=== PATIENT | female | born 1960 | race Caucasian/White ===

== ENCOUNTER → 2016-11-20 | Outpatient (CLI) | payer BC, OTHER ==
[~2016-11-20] MED LIST: ABILIFY2 MG PO; ACTOS30 MG PO; ALBUTEROL SULF0.5 M1 IH; CHILDREN'S ASPI81 M1 PO; CIPRO 500MG TA500 MG PO; CYMBALTA60 MG PO; DIABETA 2.5MG2.5 MG PO; GLUCOPHAGE850 MG PO; GLUCOPHAGE850 MG/TA1 PO; IPRATROPIUM BROM3 M1 IH; LEVEMIR SQ; LISINOPRIL10 MG PO; LYRICA150 MG PO; MUCINEX 60600 MG/TA1 PO; NEB; NORCO 325 MG-51 TAB PO; NYSTATIN POWDER30 GM PO; PREDNISONE10 MG PO; PROAIR RESPICL90 MCG IH; REMERON SOLTAB15 MG PO; ROBITUSSIN A-C S1 M1 PO; SIMVASTATIN40 M1 PO; SINGULAIR10 MG PO; SYNTHROID0.025 MG PO; SYNTHROID0.05 MG PO; SYNTHROID25 MCG PO; VYVANSE20 MG PO; VYVANSE50 MG PO; ZANTAC150 M1 PO; ZOFRAN4 M1 PO
== END ==
LOC: RAD 12:59
DX: J45.40 Moderate persistent asthma, uncomplicated (principal); J32.4 Chronic pansinusitis

== ENCOUNTER → 2016-12-09 | Outpatient (CLI) | payer BC, OTHER | LOC: LAB 12:45 | DX: R06.02 Shortness of breath (principal) ==

== ENCOUNTER → 2017-01-03 | Outpatient (CLI) | payer BC, OTHER | LOC: LAB 09:31 | DX: E11.621 Type 2 diabetes mellitus with foot ulcer (principal); L03.031 Cellulitis of right toe ==

== ENCOUNTER → 2017-01-10 | Outpatient (CLI) | payer BC, OTHER | LOC: LAB 09:26 | DX: R06.02 Shortness of breath (principal) ==

== ENCOUNTER → 2017-03-24 | Outpatient (CLI) | payer BC, OTHER ==
[2016-11-04 15:04] VITALS: BP 146/76
== END ==
LOC: LAB 08:45
DX: E11.9 Type 2 diabetes mellitus without complications (principal)

== ENCOUNTER → 2017-05-26 | Outpatient (CLI) | payer OTHER ==
[2016-11-04 15:04] VITALS: BP 146/76
== END ==
LOC: LAB 09:45
DX: S91.002A Unspecified open wound, left ankle, initial encounter (principal); A41.01 Sepsis due to Methicillin susceptible Staphylococcus aureus

== ENCOUNTER → 2017-07-01 | Outpatient (CLI) | payer OTHER ==
[2016-11-04 15:04] VITALS: BP 146/76
== END ==
LOC: LAB 09:43
DX: E11.40 Type 2 diabetes mellitus with diabetic neuropathy, unspecified (principal); Z79.4 Long term (current) use of insulin

== ENCOUNTER 2017-07-02 10:00 | Outpatient (RCR) | payer OTHER ==
[2016-11-04 15:04] VITALS: BP 146/76
== END 2017-07-11 08:50 | disposition home or self-care (01) ==
LOC: OT 10:00
DX: M62.81 Muscle weakness (generalized) (principal)

== ENCOUNTER → 2017-09-16 | Outpatient (CLI) | payer OTHER ==
[2016-11-04 15:04] VITALS: BP 146/76
[2017-09-16 09:31] LABS: EOS % 0.1 % (1.0-5.0); HEMATOCRIT 37.4 % (37.0-47.0); LYMPH# 1.9 (1.50-4.00); MEAN CELL VOLUME 90 fl (78-100); MEAN CORPUSCULAR HEMOGLOBIN 29 pg (27-31); MEAN CORPUSCULAR HGB CONC 32 g/dL (33-37); MEAN PLATELET VOLUME 9.3 fl (7.4-10.4); MONO # 0.6 (0.20-0.80); NEU # 6.3 (1.40-6.50); PLATELET COUNT 273 K/mm3 (130-400); RED BLOOD COUNT 4.17 M/mm3 (4.10-5.30); RED CELL DISTRIBUTION WIDTH 13.8 % (11.5-14.5); WHITE BLOOD COUNT 8.9 K/mm3 (4.8-10.8)
[2017-09-16 09:48] LABS: ALBUMIN 4.1 g/dL (3.5-5.0); BUN/CREATININE RATIO 29.2 (6.0-26.0); CALCIUM 9.4 mg/dL (8.4-10.2); POTASSIUM 4.4 mmol/L (3.6-5.0); TOTAL BILIRUBIN 0.5 mg/dL (0.2-1.3); TOTAL PROTEIN 7.5 g/dL (6.3-8.2)
== END ==
LOC: LAB 09:19
PROVIDERS: Nurse Practitioner Family
DX: Z01.419 Encounter for gynecological examination (general) (routine) without abnormal findings (principal); E11.9 Type 2 diabetes mellitus without complications; E03.4 Atrophy of thyroid (acquired); I10 Essential (primary) hypertension

== ENCOUNTER → 2017-10-29 | Outpatient (CLI) | payer OTHER ==
[2016-11-04 15:04] VITALS: BP 146/76
== END ==
LOC: MAMMO 13:32 → RAD 13:32
DX: Z12.31 Encounter for screening mammogram for malignant neoplasm of breast (principal)
CPT/HCPCS: G0202

== ENCOUNTER → 2018-01-05 | Outpatient (CLI) | payer OTHER ==
[2016-11-04 15:04] VITALS: BP 146/76
== END ==
LOC: RAD 08:47
DX: J45.901 Unspecified asthma with (acute) exacerbation (principal); Z20.828 Contact with and (suspected) exposure to other viral communicable diseases; D51.9 Vitamin B12 deficiency anemia, unspecified; E11.9 Type 2 diabetes mellitus without complications; R25.1 Tremor, unspecified

== ENCOUNTER → 2018-01-07 | Outpatient (CLI) | payer OTHER ==
[2016-11-04 15:04] VITALS: BP 146/76
[2018-01-07 11:23] LABS: ALBUMIN 3.9 g/dL (3.5-5.0); BUN/CREATININE RATIO 24.4 (6.0-26.0); CALCIUM 8.8 mg/dL (8.4-10.2); TOTAL BILIRUBIN 0.2 mg/dL (0.2-1.3); TOTAL PROTEIN 7.3 g/dL (6.3-8.2)
[2018-01-07 11:30] LABS: EOS % 0.1 % (1.0-5.0); HEMOGLOBIN 12.7 g/dL (12.5-16.0); LYMPH# 3.5 (1.50-4.00); MEAN CELL VOLUME 87 fl (78-100); MEAN CORPUSCULAR HEMOGLOBIN 28 pg (27-31); MEAN CORPUSCULAR HGB CONC 32 g/dL (33-37); MONO # 0.4 (0.20-0.80); NEU # 3.6 (1.40-6.50); PLATELET COUNT 270 K/mm3 (130-400); RED BLOOD COUNT 4.58 M/mm3 (4.10-5.30); RED CELL DISTRIBUTION WIDTH 14.5 % (11.5-14.5); WHITE BLOOD COUNT 7.6 K/mm3 (4.8-10.8)
== END ==
LOC: LAB 10:46
PROVIDERS: Nurse Practitioner Family
DX: J45.901 Unspecified asthma with (acute) exacerbation (principal); D51.9 Vitamin B12 deficiency anemia, unspecified; E11.9 Type 2 diabetes mellitus without complications; E53.8 Deficiency of other specified B group vitamins; Z20.828 Contact with and (suspected) exposure to other viral communicable diseases

== ENCOUNTER → 2018-06-07 | Emergency (ER) | payer OTHER ==
[2016-11-04 15:04] VITALS: BP 146/76
== END | disposition left against medical advice (07) ==
LOC: ED 17:35
DX: S91.104A Unspecified open wound of right lesser toe(s) without damage to nail, initial encounter (principal); Z53.21 Procedure and treatment not carried out due to patient leaving prior to being seen by health care provider

== ENCOUNTER 2018-06-16 13:23 | Outpatient (RCR) | payer OTHER ==
[~2018-06-16] VITALS: Ht 154.9 cm; Wt 100.0 kg
[2018-06-16] MEDS ORDERED: LEVEMIR100 U/M1 SQ (14:30)
[2018-06-16 14:35] VITALS: BP 132/66
[2018-06-16 14:45] VITALS: BP 122/66
[2018-06-17 11:11] VITALS: BP 122/57
[2018-06-17 11:38] VITALS: BP 143/58
[2018-06-18 11:08] VITALS: BP 134/77
[2018-06-18 11:44] VITALS: BP 114/61
[2018-06-19 09:47] VITALS: BP 114/69
[2018-06-19 10:47] VITALS: BP 122/84
[2018-06-19 17:42] VITALS: BP 126/84
[2018-06-20 11:22] VITALS: BP 124/74
[2018-06-20 12:00] VITALS: BP 111/56
[2018-06-21 11:05] VITALS: BP 136/65
[2018-06-21 11:50] VITALS: BP 112/61
[2018-06-22 10:01] VITALS: BP 126/68
[2018-06-22 10:56] VITALS: BP 128/65
== END 2018-06-22 16:00 | disposition home or self-care (01) ==
LOC: AMSURD 13:23
DX: M86.8X7 Other osteomyelitis, ankle and foot (principal); B99.9 Unspecified infectious disease
CPT/HCPCS: J0696; J1644

== ENCOUNTER → 2018-06-19 | Outpatient (CLI) | payer OTHER ==
[~2018-06-19] MED LIST changes: +LEVEMIR100 U/M1 SQ
[2018-06-19 09:47] VITALS: BP 114/69
[2018-06-19 11:18] LABS: HEMATOCRIT 34.7 % (37.0-47.0); HEMOGLOBIN 11.2 g/dL (12.5-16.0); MEAN PLATELET VOLUME 10.2 fl (7.4-10.4); RED BLOOD COUNT 3.9 M/mm3 (4.10-5.30); WHITE BLOOD COUNT 8.1 K/mm3 (4.8-10.8)
[2018-06-19 11:49] LABS: ALBUMIN 3.7 g/dL (3.5-5.0); BUN/CREATININE RATIO 27.8 (6.0-26.0); CALCIUM 8.4 mg/dL (8.4-10.2); POTASSIUM 3.6 mmol/L (3.6-5.0); TOTAL BILIRUBIN 0.2 mg/dL (0.2-1.3); TOTAL PROTEIN 6.7 g/dL (6.3-8.2)
== END ==
LOC: LAB 10:31
PROVIDERS: Family Medicine
DX: M86.8X7 Other osteomyelitis, ankle and foot (principal)

== ENCOUNTER → 2018-07-04 | Outpatient (CLI) | payer OTHER ==
[2018-06-22 10:56] VITALS: BP 128/65
[2018-07-04 08:35] LABS: EOS # 0.2 (0.04-0.40); EOS % 1.3 % (1.0-5.0); HEMATOCRIT 37.9 % (37.0-47.0); HEMOGLOBIN 12.6 g/dL (12.5-16.0); LYMPH# 1.8 (1.50-4.00); MEAN CELL VOLUME 87 fl (78-100); MEAN CORPUSCULAR HEMOGLOBIN 29 pg (27-31); MEAN CORPUSCULAR HGB CONC 33 g/dL (33-37); MEAN PLATELET VOLUME 10.4 fl (7.4-10.4); MONO # 0.7 (0.20-0.80); PLATELET COUNT 229 K/mm3 (130-400); RED BLOOD COUNT 4.34 M/mm3 (4.10-5.30); RED CELL DISTRIBUTION WIDTH 14.1 % (11.5-14.5); WHITE BLOOD COUNT 12.2 K/mm3 (4.8-10.8)
[2018-07-04 08:46] LABS: NEU # 9.4 (1.40-6.50)
== END ==
LOC: LAB 08:14
PROVIDERS: Nurse Practitioner Family
DX: R10.31 Right lower quadrant pain (principal); R10.32 Left lower quadrant pain

== ENCOUNTER → 2018-10-07 | Outpatient (CLI) | payer OTHER | LOC: RAD 08:34 | DX: M17.0 Bilateral primary osteoarthritis of knee (principal); Z96.651 Presence of right artificial knee joint; Z98.890 Other specified postprocedural states ==

== ENCOUNTER → 2019-02-03 | Outpatient (CLI) | payer OTHER | LOC: MAMMO 09:15 | DX: Z12.31 Encounter for screening mammogram for malignant neoplasm of breast (principal) ==

== ENCOUNTER 2019-03-04 08:58 | Inpatient (IN) | payer OTHER ==
[~2019-03-04] VITALS: Ht 154.9 cm; Wt 92.9 kg
[2019-03-04] MEDS ORDERED: WELLBUTRIN SR150 M3 PO (09:33)
[2019-03-04] MEDS ORDERED: WELLBUTRIN XL300 M1 PO (09:33)
[2019-03-04] MEDS ORDERED: FISH OIL1 IU PO (09:34)
[2019-03-04] MEDS ORDERED: FENOFIBRATE48 MG PO (09:34)
[2019-03-04] MEDS ORDERED: NATURAL IRON65 MG PO (09:34)
[2019-03-04] MEDS ORDERED: ADVAIR DISKUS1 DSK IH (09:35)
[2019-03-04] MEDS ORDERED: GLIPIZIDE ER5 MG PO (09:36)
[2019-03-04] MEDS ORDERED: PHARMASSURE FO0.4 MG PO (09:36)
[2019-03-04] MEDS ORDERED: LEVEMIR100 U/M1 SQ ×2 (09:37)
[2019-03-04] MEDS ORDERED: MAGNESIUM OXID400 M2 PO (09:39)
[2019-03-04] MEDS ORDERED: TOPROL XL 50MG50 MG PO (09:39)
[2019-03-04] MEDS ORDERED: LOSARTAN POTASS25 MG PO (09:39)
[2019-03-04] MEDS ORDERED: LYRICA 150MG C150 MG PO (09:41)
[2019-03-04] MEDS ORDERED: ROPINIROLE HCL1 MG PO (09:42)
[2019-03-04] MEDS ORDERED: ALDACTONE 25MG25 MG PO (09:43)
[2019-03-04] MEDS ORDERED: DESYREL 100MG100 MG PO (09:43)
[2019-03-04] MEDS ORDERED: VITAMIN B12-FO1 EACH PO (09:44)
[2019-03-04] MEDS ORDERED: VITAMIN D32000 IU PO (09:44)
[2019-03-04] MEDS ORDERED: LEADER C 250 MG1 TAB PO (09:44)
[2019-03-04] MEDS ORDERED: VITAMIN E400 UNI1 PO (09:44)
[2019-03-04 09:50] LABS: HEMATOCRIT 39.7 % (37.0-47.0); HEMOGLOBIN 12.9 g/dL (12.5-16.0); MEAN CELL VOLUME 89 fl (78-100); MEAN CORPUSCULAR HEMOGLOBIN 29 pg (27-31); MEAN CORPUSCULAR HGB CONC 33 g/dL (33-37); MEAN PLATELET VOLUME 11.1 fl (7.4-10.4); PLATELET COUNT 161 K/mm3 (130-400); RED BLOOD COUNT 4.47 M/mm3 (4.10-5.30); RED CELL DISTRIBUTION WIDTH 14.1 % (11.5-14.5); WHITE BLOOD COUNT 11.7 K/mm3 (4.8-10.8)
[2019-03-04 10:09] LABS: ALBUMIN 3.9 g/dL (3.5-5.0); CALCIUM 8.7 mg/dL (8.4-10.2); POTASSIUM 3.8 mmol/L (3.6-5.0); TOTAL BILIRUBIN 0.5 mg/dL (0.2-1.3); TOTAL PROTEIN 7.3 g/dL (6.3-8.2)
[2019-03-04 10:20] LABS: BAND 10 % (0-10); LYMPHOCYTE 10 % (20-51); MONOCYTE 4 % (3-10); NEUTROPHILS 76 % (42-75)
[2019-03-04 11:08] LABS: URINE APPEARANCE CLOUDY; URINE COLOR YELLOW
[2019-03-04 11:09] LABS: URINE BILIRUBIN NEGATIVE (NEGATIVE); URINE BLOOD NEGATIVE (NEGATIVE); URINE GLUCOSE 50 mg/dL mg/dL (NEGATIVE); URINE KETONE NEGATIVE (NEGATIVE); URINE LEUKOCYTE ESTERASE 2+ (NEGATIVE); URINE MUCUS PRESENT (NOT PRESENT); URINE NITRATE NEGATIVE (NEGATIVE); URINE PROTEIN(semi-quant) 1+ mg/dL (NEGATIVE); URINE UROBILINOGEN NORMAL (NORMAL); URINE WBC 31-50 /hpf (0-3)
[2019-03-04 12:03] VITALS: BP 127/60
[2019-03-04 13:39] VITALS: BP 150/66
[2019-03-04 15:26] VITALS: BP 120/61
[2019-03-04 18:19] VITALS: BP 92/49
[2019-03-04 19:08] VITALS: BP 97/55
[2019-03-04 23:07] VITALS: BP 101/58
[2019-03-05] VITALS (7 sets, daily range): BP systolic 93–121; BP diastolic 44–71
[2019-03-05 08:48] LABS: CALCIUM 8.4 mg/dL (8.4-10.2); EOS % 0.3 % (1.0-5.0); HEMATOCRIT 36.3 % (37.0-47.0); HEMOGLOBIN 11.8 g/dL (12.5-16.0); LYMPH# 1.1 (1.50-4.00); MEAN CELL VOLUME 89 fl (78-100); MEAN CORPUSCULAR HEMOGLOBIN 29 pg (27-31); MEAN CORPUSCULAR HGB CONC 33 g/dL (33-37); MEAN PLATELET VOLUME 11.5 fl (7.4-10.4); MONO # 0.6 (0.20-0.80); NEU # 7.8 (1.40-6.50); PLATELET COUNT 146 K/mm3 (130-400); POTASSIUM 4.7 mmol/L (3.6-5.0); RED BLOOD COUNT 4.06 M/mm3 (4.10-5.30); WHITE BLOOD COUNT 9.6 K/mm3 (4.8-10.8)
[2019-03-05 14:00] LABS: URINE APPEARANCE CLEAR; URINE BILIRUBIN NEGATIVE (NEGATIVE); URINE BLOOD NEGATIVE (NEGATIVE); URINE COLOR YELLO0W; URINE GLUCOSE 50 mg/dL mg/dL (NEGATIVE); URINE KETONE NEGATIVE (NEGATIVE); URINE LEUKOCYTE ESTERASE NEGATIVE (NEGATIVE); URINE NITRATE NEGATIVE (NEGATIVE); URINE PROTEIN(semi-quant) TRACE mg/dL (NEGATIVE); URINE UROBILINOGEN NORMAL (NORMAL); URINE WBC 0-1 /hpf (0-3)
[2019-03-06] VITALS (7 sets, daily range): BP systolic 108–145; BP diastolic 66–74
[2019-03-06 10:59] LABS: HEMATOCRIT 35.2 % (37.0-47.0); HEMOGLOBIN 11.6 g/dL (12.5-16.0); MEAN CELL VOLUME 88 fl (78-100); MEAN CORPUSCULAR HEMOGLOBIN 29 pg (27-31); MEAN CORPUSCULAR HGB CONC 33 g/dL (33-37); MEAN PLATELET VOLUME 10.4 fl (7.4-10.4); PLATELET COUNT 175 K/mm3 (130-400); RED BLOOD COUNT 3.99 M/mm3 (4.10-5.30); RED CELL DISTRIBUTION WIDTH 13.9 % (11.5-14.5); WHITE BLOOD COUNT 11.5 K/mm3 (4.8-10.8)
[2019-03-06 11:20] LABS: BAND 0 % (0-10); LYMPHOCYTE 14 % (20-51); MONOCYTE 4 % (3-10); NEUTROPHILS 82 % (42-75)
[2019-03-07] VITALS (8 sets, daily range): BP systolic 108–129; BP diastolic 62–76
[2019-03-07 07:08] LABS: EOS # 0.2 (0.04-0.40); EOS % 1.4 % (1.0-5.0); HEMATOCRIT 33.7 % (37.0-47.0); HEMOGLOBIN 10.9 g/dL (12.5-16.0); LYMPH# 1.8 (1.50-4.00); MEAN CELL VOLUME 89 fl (78-100); MEAN CORPUSCULAR HEMOGLOBIN 29 pg (27-31); MEAN CORPUSCULAR HGB CONC 32 g/dL (33-37); MEAN PLATELET VOLUME 10.2 fl (7.4-10.4); MONO # 0.9 (0.20-0.80); NEU # 8.4 (1.40-6.50); PLATELET COUNT 181 K/mm3 (130-400); RED BLOOD COUNT 3.79 M/mm3 (4.10-5.30); RED CELL DISTRIBUTION WIDTH 13.8 % (11.5-14.5); WHITE BLOOD COUNT 11.4 K/mm3 (4.8-10.8)
[2019-03-07 07:18] LABS: CALCIUM 8.9 mg/dL (8.4-10.2)
[2019-03-08 03:10] VITALS: BP 117/69
[2019-03-08 06:20] VITALS: BP 122/77
[2019-03-08 11:06] VITALS: BP 121/74
[2019-03-08 15:24] VITALS: BP 114/63
== END 2019-03-08 17:09 | disposition swing bed (61) | DRG 638 ==
LOC: ED 08:58 → MED/SURG 13:32
PROVIDERS: Family Medicine; Nurse Practitioner Family; ADMIT Nurse Practitioner Primary Care
DX: E11.649 Type 2 diabetes mellitus with hypoglycemia without coma (principal); L03.115 Cellulitis of right lower limb; N30.00 Acute cystitis without hematuria; I95.1 Orthostatic hypotension; Z79.4 Long term (current) use of insulin; I87.2 Venous insufficiency (chronic) (peripheral); G20 Parkinson's disease; F32.9 Major depressive disorder, single episode, unspecified; I50.9 Heart failure, unspecified; J45.998 Other asthma; E78.5 Hyperlipidemia, unspecified; E03.9 Hypothyroidism, unspecified; I11.0 Hypertensive heart disease with heart failure; J44.9 Chronic obstructive pulmonary disease, unspecified; R13.10 Dysphagia, unspecified
CPT/HCPCS: A4216; J0696; J1650; J1815; J1940; J2543; J3370; J7030; J7042; J7050

== ENCOUNTER 2019-03-08 17:09 | Inpatient (IN) | payer OTHER ==
[~2019-03-08] VITALS: Ht 154.9 cm; Wt 92.9 kg
[~2019-03-08 17:09] MED LIST changes: +ADVAIR DISKUS1 DSK IH; +ALDACTONE 25MG25 MG PO; +DESYREL 100MG100 MG PO; +FENOFIBRATE48 MG PO; +FISH OIL1 IU PO; +GLIPIZIDE ER5 MG PO; +LEADER C 250 MG1 TAB PO; +LOSARTAN POTASS25 MG PO; +LYRICA 150MG C150 MG PO; +MAGNESIUM OXID400 M2 PO; +NATURAL IRON65 MG PO; +PHARMASSURE FO0.4 MG PO; +ROPINIROLE HCL1 MG PO; +TOPROL XL 50MG50 MG PO; +VITAMIN B12-FO1 EACH PO; +VITAMIN D32000 IU PO; +VITAMIN E400 UNI1 PO; +WELLBUTRIN SR150 M3 PO; +WELLBUTRIN XL300 M1 PO
[2019-03-08 17:56] VITALS: BP 127/69
[2019-03-08 17:59] VITALS: BP 127/69
[2019-03-09 06:21] VITALS: BP 116/69
[2019-03-09 07:01] LABS: BASO # 0.1 (0.02-0.10); EOS # 0.2 (0.04-0.40); EOS % 1.9 % (1.0-5.0); HEMATOCRIT 32.9 % (37.0-47.0); HEMOGLOBIN 10.6 g/dL (12.5-16.0); LYMPH# 1.8 (1.50-4.00); MEAN CELL VOLUME 90 fl (78-100); MEAN CORPUSCULAR HEMOGLOBIN 29 pg (27-31); MEAN CORPUSCULAR HGB CONC 32 g/dL (33-37); MONO # 0.6 (0.20-0.80); NEU # 7.8 (1.40-6.50); PLATELET COUNT 234 K/mm3 (130-400); RED BLOOD COUNT 3.65 M/mm3 (4.10-5.30); RED CELL DISTRIBUTION WIDTH 13.7 % (11.5-14.5); WHITE BLOOD COUNT 10.8 K/mm3 (4.8-10.8)
[2019-03-09 07:24] LABS: CALCIUM 8.8 mg/dL (8.4-10.2); POTASSIUM 4.1 mmol/L (3.6-5.0)
[2019-03-09 18:00] VITALS: BP 126/82
[2019-03-09 19:13] LABS: FOLATE (FOLIC ACID) 15.8 ng/mL (7.0-31.4)
[2019-03-10 06:17] VITALS: BP 125/70
[2019-03-10 18:24] VITALS: BP 112/56
[2019-03-11 06:08] VITALS: BP 129/77
[2019-03-11 13:46] LABS: CERULOPLASMIN 43.8 mg/dL (())
[2019-03-11 15:38] LABS: .COPPER,S 2.11 mcg/mL (())
[2019-03-11 18:00] VITALS: BP 116/7
[2019-03-12 06:05] VITALS: BP 101/65
[2019-03-12 18:49] VITALS: BP 113/69
[2019-03-13 06:13] VITALS: BP 125/71
[2019-03-13 08:57] LABS: VITAMIN E 11.3 mg/L (())
[2019-03-13 19:00] VITALS: BP 104/66
[2019-03-14 06:04] VITALS: BP 127/77
[2019-03-14 18:24] VITALS: BP 129/77
[2019-03-15 06:35] VITALS: BP 111/69
[2019-03-15 18:37] VITALS: BP 121/86
[2019-03-16 06:14] VITALS: BP 135/68
[2019-03-16] MEDS ORDERED: ALBUTEROL2.5 MG/3 M IH (09:04)
[2019-03-16] MEDS ORDERED: NATURAL IRON65 MG PO (09:05)
[2019-03-16] MEDS ORDERED: FISH OIL 1000MG1 CAP PO (09:05)
[2019-03-16] MEDS ORDERED: CARBIDOPA/LEVODOPA PO (09:07)
[2019-03-16] MEDS ORDERED: NOVOLOG FLEX100 U/ML SQ (09:15)
[2019-03-16] MEDS ORDERED: GLIPIZIDE ER5 MG PO (09:15)
[2019-03-16] MEDS ORDERED: EASY TOUCH MC (09:18)
== END 2019-03-16 13:00 | disposition home or self-care (01) | DRG 948 ==
LOC: MED/SURG 17:09
PROVIDERS: ADMIT Nurse Practitioner Primary Care
DX: R53.81 Other malaise (principal); L03.115 Cellulitis of right lower limb; N39.0 Urinary tract infection, site not specified; I87.2 Venous insufficiency (chronic) (peripheral); G20 Parkinson's disease; E11.649 Type 2 diabetes mellitus with hypoglycemia without coma; G47.33 Obstructive sleep apnea (adult) (pediatric); I50.9 Heart failure, unspecified; J98.9 Respiratory disorder, unspecified; I11.0 Hypertensive heart disease with heart failure; E11.621 Type 2 diabetes mellitus with foot ulcer; L97.519 Non-pressure chronic ulcer of other part of right foot with unspecified severity; E03.9 Hypothyroidism, unspecified; E78.5 Hyperlipidemia, unspecified
CPT/HCPCS: J1650; J1815

== ENCOUNTER → 2019-04-13 | Outpatient (CLI) | payer OTHER ==
[2019-03-16 06:14] VITALS: BP 135/68
[~2019-04-13] MED LIST changes: +ALBUTEROL2.5 MG/3 M IH; +CARBIDOPA/LEVODOPA PO; +EASY TOUCH MC; +FISH OIL 1000MG1 CAP PO; +NOVOLOG FLEX100 U/ML SQ
[2019-04-13 09:55] LABS: EOS # 0.2 (0.04-0.40); EOS % 2.7 % (1.0-5.0); HEMOGLOBIN 12.1 g/dL (12.5-16.0); LYMPH# 1.7 (1.50-4.00); MEAN CELL VOLUME 89 fl (78-100); MEAN CORPUSCULAR HEMOGLOBIN 29 pg (27-31); MEAN CORPUSCULAR HGB CONC 33 g/dL (33-37); MEAN PLATELET VOLUME 10.5 fl (7.4-10.4); MONO # 0.5 (0.20-0.80); NEU # 6.1 (1.40-6.50); PLATELET COUNT 221 K/mm3 (130-400); RED BLOOD COUNT 4.14 M/mm3 (4.10-5.30); RED CELL DISTRIBUTION WIDTH 14.7 % (11.5-14.5); WHITE BLOOD COUNT 8.6 K/mm3 (4.8-10.8)
[2019-04-13 10:11] LABS: ALBUMIN 3.8 g/dL (3.5-5.0); CALCIUM 9.4 mg/dL (8.4-10.2); POTASSIUM 3.8 mmol/L (3.5-5.1); TOTAL BILIRUBIN 0.3 mg/dL (0.2-1.2); TOTAL PROTEIN 6.4 g/dL (6.4-8.3)
== END ==
LOC: LAB 09:38
PROVIDERS: Internal Medicine
DX: D51.9 Vitamin B12 deficiency anemia, unspecified (principal); E11.9 Type 2 diabetes mellitus without complications; Z20.828 Contact with and (suspected) exposure to other viral communicable diseases; R25.1 Tremor, unspecified

== ENCOUNTER → 2019-04-29 | Outpatient (CLI) | payer OTHER | LOC: RAD 09:48 | DX: R06.02 Shortness of breath (principal) ==

== ENCOUNTER 2019-06-10 09:48 | Emergency (ER) | payer OTHER ==
[~2019-06-10] VITALS: Ht 154.9 cm; Wt 84.1 kg
[~2019-06-10 09:48] MED LIST changes: +ADVAIR DISKUS1 DS2 IH; -ADVAIR DISKUS1 DSK IH; +ASPIRIN E.C. 8181 MG PO; +BUPROPION XL450 MG PO; -CHILDREN'S ASPI81 M1 PO; +CYMBALTA60 M1 PO; -CYMBALTA60 MG PO; +LEADER NATUR1000 MCG PO; +SINGULAIR PO; -SINGULAIR10 MG PO; -VITAMIN B12-FO1 EACH PO; -WELLBUTRIN SR150 M3 PO
[2019-06-10] MEDS ORDERED: FEROSUL325 M1 PO (10:25)
[2019-06-10] MEDS ORDERED: IPRATROPIUM BROM3 M1 IH (10:27)
[2019-06-10] MEDS ORDERED: MULTI-VITAMIN1 EACH PO (10:35)
[2019-06-10] MEDS ORDERED: MELOXICAM15 MG PO (10:35)
[2019-06-10] MEDS ORDERED: NATURE'S BLEND400 IU PO (10:36)
[2019-06-10] MEDS ORDERED: HEMATINIC W/FOL1 TAB PO (10:37)
[2019-06-10] MEDS ORDERED: GLUCOTROL 5M5 MG/TAB PO (10:38)
[2019-06-10] MEDS ORDERED: MASON NATURAL1200 MG PO (10:39)
[2019-06-10] MEDS ORDERED: CARBIDOPA/LEVODOPA PO (10:40)
[2019-06-10] MEDS ORDERED: ROPINIROLE8 M1 PO (10:42)
[2019-06-10] MEDS ORDERED: METOPROLOL SUC100 M1 PO (10:43)
[2019-06-10 10:48] LABS: HEMATOCRIT 37.9 % (37.0-47.0); HEMOGLOBIN 12.5 g/dL (12.5-16.0); MEAN CELL VOLUME 88 fl (78-100); MEAN CORPUSCULAR HEMOGLOBIN 29 pg (27-31); MEAN CORPUSCULAR HGB CONC 33 g/dL (33-37); PLATELET COUNT 224 K/mm3 (130-400); RED CELL DISTRIBUTION WIDTH 13.5 % (11.5-14.5); WHITE BLOOD COUNT 14.8 K/mm3 (4.8-10.8)
[2019-06-10] MEDS ORDERED: NYSTATIN15 GM TOP (10:48)
[2019-06-10] MEDS ORDERED: NOVOLOG 100U100 U/ML SQ (10:51)
[2019-06-10] MEDS ORDERED: LEVEMIR100 U/M1 SQ (10:51)
[2019-06-10 10:57] LABS: ALBUMIN 3.8 g/dL (3.5-5.0); POTASSIUM 4.4 mmol/L (3.5-5.1)
[2019-06-10 10:58] LABS: CALCIUM 9.7 mg/dL (8.3-10.5)
[2019-06-10 11:00] LABS: LYMPHOCYTE 11 % (20-51); MONOCYTE 3 % (3-10); NEUTROPHILS 86 % (42-75); TOTAL PROTEIN 7.9 g/dL (6.4-8.3)
[2019-06-10 11:02] LABS: TOTAL BILIRUBIN 0.5 mg/dL (0.2-1.2)
[2019-06-10 11:52] LABS: ERYTHROCYTE SEDIMENTATION RATE 49 mm/hr (0-30)
[2019-06-10 12:40] VITALS: BP 120/62
== END 2019-06-10 13:05 | disposition short-term general hospital (02) ==
LOC: ED 09:48
PROVIDERS: Nurse Practitioner Primary Care
DX: L03.031 Cellulitis of right toe (principal); F32.9 Major depressive disorder, single episode, unspecified; E11.9 Type 2 diabetes mellitus without complications; I10 Essential (primary) hypertension; F41.9 Anxiety disorder, unspecified; E07.9 Disorder of thyroid, unspecified; Z89.422 Acquired absence of other left toe(s); Z79.4 Long term (current) use of insulin; Z79.82 Long term (current) use of aspirin; Z79.51 Long term (current) use of inhaled steroids
CPT/HCPCS: J3370; J7030; J7050

== ENCOUNTER 2019-07-22 19:59 | Emergency (ER) | payer OTHER ==
[~2019-07-22 19:59] MED LIST changes: +FEROSUL325 M1 PO; +GLUCOTROL 5M5 MG/TAB PO; +HEMATINIC W/FOL1 TAB PO; +MASON NATURAL1200 MG PO; +MELOXICAM15 MG PO; +METOPROLOL SUC100 M1 PO; +MULTI-VITAMIN1 EACH PO; +NATURE'S BLEND400 IU PO; +NOVOLOG 100U100 U/ML SQ; +NYSTATIN15 GM TOP; +ROPINIROLE8 M1 PO
[2019-07-22 21:29] LABS: BASO # 0.1 (0.02-0.10); EOS # 0.4 (0.04-0.40); EOS % 4.7 % (1.0-5.0); HEMOGLOBIN 13.5 g/dL (12.5-16.0); LYMPH# 2.7 (1.50-4.00); MEAN CELL VOLUME 88 fl (78-100); MEAN CORPUSCULAR HEMOGLOBIN 29 pg (27-31); MEAN CORPUSCULAR HGB CONC 33 g/dL (33-37); MEAN PLATELET VOLUME 10.9 fl (7.4-10.4); MONO # 0.6 (0.20-0.80); NEU # 4.6 (1.40-6.50); PLATELET COUNT 216 K/mm3 (130-400); RED BLOOD COUNT 4.67 M/mm3 (4.10-5.30); RED CELL DISTRIBUTION WIDTH 13.8 % (11.5-14.5); WHITE BLOOD COUNT 8.3 K/mm3 (4.8-10.8)
[2019-07-22 21:50] LABS: PH-URINE 5.5 (5.0 - 8.0); URINE APPEARANCE CLEAR; URINE BILIRUBIN NEGATIVE (NEGATIVE); URINE BLOOD NEGATIVE (NEGATIVE); URINE COLOR YELLOW; URINE GLUCOSE NEGATIVE (NEGATIVE); URINE KETONE NEGATIVE (NEGATIVE); URINE LEUKOCYTE ESTERASE NEGATIVE (NEGATIVE); URINE NITRATE NEGATIVE (NEGATIVE); URINE PROTEIN(semi-quant) NEGATIVE (NEGATIVE); URINE UROBILINOGEN NORMAL (NORMAL); URINE WBC 0-1 /hpf (0-3)
[2019-07-22 21:54] LABS: ALBUMIN 4.2 g/dL (3.5-5.0); POTASSIUM 4.1 mmol/L (3.5-5.1)
[2019-07-22 21:55] LABS: CALCIUM 9.5 mg/dL (8.3-10.5)
[2019-07-22 21:57] LABS: TOTAL PROTEIN 7.6 g/dL (6.4-8.3)
[2019-07-22 21:58] LABS: TOTAL BILIRUBIN 0.2 mg/dL (0.2-1.2)
[2019-07-22 23:00] VITALS: BP 133/68
== END 2019-07-22 23:00 | disposition home or self-care (01) ==
LOC: ED 19:59
PROVIDERS: Nurse Practitioner Family
DX: K59.00 Constipation, unspecified (principal); R11.0 Nausea; E11.9 Type 2 diabetes mellitus without complications; I11.0 Hypertensive heart disease with heart failure; I50.9 Heart failure, unspecified; E78.5 Hyperlipidemia, unspecified; J44.9 Chronic obstructive pulmonary disease, unspecified; G47.33 Obstructive sleep apnea (adult) (pediatric); G20 Parkinson's disease; E03.9 Hypothyroidism, unspecified; Z79.4 Long term (current) use of insulin; Z90.710 Acquired absence of both cervix and uterus; Z98.890 Other specified postprocedural states; Z79.82 Long term (current) use of aspirin; Z79.51 Long term (current) use of inhaled steroids

== ENCOUNTER → 2019-07-28 | Outpatient (CLI) | payer OTHER ==
[2019-07-22 23:00] VITALS: BP 133/68
== END ==
LOC: RAD 07:28
DX: G93.89 Other specified disorders of brain (principal); R41.3 Other amnesia; R20.2 Paresthesia of skin
CPT/HCPCS: A9585

== ENCOUNTER → 2019-08-05 | Outpatient (CLI) | payer OTHER ==
[~2019-08-05] VITALS: Ht 154.9 cm; Wt 84.1 kg
[2019-08-05 11:04] VITALS: BP 166/79
== END ==
LOC: AMSURD 10:39
DX: K59.00 Constipation, unspecified (principal)

== ENCOUNTER 2019-08-17 09:30 | Outpatient (RCR) | payer OTHER | END 2019-08-29 | disposition still patient (30) | LOC: OT | DX: G20 Parkinson's disease (principal) ==

== ENCOUNTER 2019-09-20 15:56 | Inpatient (IN) | payer OTHER ==
[~2019-09-20] VITALS: Ht 149.9 cm; Wt 84.4 kg
[2019-09-20] MEDS ORDERED: METFORMIN ER500 MG PO (16:07)
[2019-09-20 17:23] LABS: EOS # 0.2 (0.04-0.40); EOS % 1.9 % (1.0-5.0); HEMATOCRIT 35.3 % (37.0-47.0); HEMOGLOBIN 11.6 g/dL (12.5-16.0); MEAN CELL VOLUME 89 fl (78-100); MEAN CORPUSCULAR HEMOGLOBIN 29 pg (27-31); MEAN CORPUSCULAR HGB CONC 33 g/dL (33-37); MEAN PLATELET VOLUME 9.6 fl (7.4-10.4); MONO # 0.6 (0.20-0.80); NEU # 6.6 (1.40-6.50); PLATELET COUNT 262 K/mm3 (130-400); RED BLOOD COUNT 3.97 M/mm3 (4.10-5.30); RED CELL DISTRIBUTION WIDTH 12.6 % (11.5-14.5); WHITE BLOOD COUNT 9.6 K/mm3 (4.8-10.8)
[2019-09-20 17:27] LABS: ALBUMIN 3.9 g/dL (3.5-5.0); POTASSIUM 3.9 mmol/L (3.5-5.1)
[2019-09-20 17:30] LABS: TOTAL PROTEIN 7.4 g/dL (6.4-8.3)
[2019-09-20 17:32] LABS: TOTAL BILIRUBIN 0.3 mg/dL (0.2-1.2)
[2019-09-20 18:28] LABS: ERYTHROCYTE SEDIMENTATION RATE 82 mm/hr (0-30)
[2019-09-20 18:32] VITALS: BP 122/69
[2019-09-20 18:36] VITALS: BP 122/69
[2019-09-20 23:26] VITALS: BP 101/61
[2019-09-21 03:30] VITALS: BP 105/54
[2019-09-21 06:23] VITALS: BP 121/77
[2019-09-21 06:31] LABS: EOS # 0.2 (0.04-0.40); EOS % 3.2 % (1.0-5.0); HEMOGLOBIN 10.2 g/dL (12.5-16.0); LYMPH# 2.1 (1.50-4.00); MEAN CELL VOLUME 89 fl (78-100); MEAN CORPUSCULAR HEMOGLOBIN 29 pg (27-31); MEAN CORPUSCULAR HGB CONC 32 g/dL (33-37); MEAN PLATELET VOLUME 9.7 fl (7.4-10.4); MONO # 0.5 (0.20-0.80); NEU # 3.6 (1.40-6.50); PLATELET COUNT 235 K/mm3 (130-400); RED BLOOD COUNT 3.58 M/mm3 (4.10-5.30); RED CELL DISTRIBUTION WIDTH 12.8 % (11.5-14.5); WHITE BLOOD COUNT 6.6 K/mm3 (4.8-10.8)
[2019-09-21 06:40] LABS: POTASSIUM 3.8 mmol/L (3.5-5.1)
[2019-09-21 06:41] LABS: CALCIUM 8.5 mg/dL (8.3-10.5)
[2019-09-21 10:05] LABS: ERYTHROCYTE SEDIMENTATION RATE 78 mm/hr (0-30)
[2019-09-21 11:16] VITALS: BP 120/59
[2019-09-21 14:38] VITALS: BP 115/71
[2019-09-21] MEDS ORDERED: FUROSEMIDE20 MG PO (17:52)
[2019-09-21] MEDS ORDERED: ADVAIR DISKUS1 DS2 IH (17:54)
[2019-09-21] MEDS ORDERED: ROPINIROLE12 MG PO (17:57)
[2019-09-21 18:40] VITALS: BP 119/74
[2019-09-21 23:46] VITALS: BP 101/62
[2019-09-22 03:00] VITALS: BP 94/49
[2019-09-22 06:28] VITALS: BP 110/64
[2019-09-22 11:00] VITALS: BP 109/70
[2019-09-22 15:00] VITALS: BP 125/78
[2019-09-22 19:13] VITALS: BP 104/68
[2019-09-22 23:22] VITALS: BP 111/73
[2019-09-23] VITALS (7 sets, daily range): BP systolic 101–114; BP diastolic 52–73
[2019-09-23 05:48] LABS: EOS # 0.2 (0.04-0.40); EOS % 2.7 % (1.0-5.0); HEMATOCRIT 35.5 % (37.0-47.0); HEMOGLOBIN 11.6 g/dL (12.5-16.0); LYMPH# 2.5 (1.50-4.00); MEAN CELL VOLUME 88 fl (78-100); MEAN CORPUSCULAR HEMOGLOBIN 29 pg (27-31); MEAN CORPUSCULAR HGB CONC 33 g/dL (33-37); MEAN PLATELET VOLUME 9.4 fl (7.4-10.4); MONO # 0.3 (0.20-0.80); NEU # 4.6 (1.40-6.50); PLATELET COUNT 274 K/mm3 (130-400); RED BLOOD COUNT 4.05 M/mm3 (4.10-5.30); RED CELL DISTRIBUTION WIDTH 12.6 % (11.5-14.5); WHITE BLOOD COUNT 7.8 K/mm3 (4.8-10.8)
[2019-09-23 06:19] LABS: ALBUMIN 3.8 g/dL (3.5-5.0); POTASSIUM 3.6 mmol/L (3.5-5.1)
[2019-09-23 06:20] LABS: CALCIUM 9.4 mg/dL (8.3-10.5)
[2019-09-23 06:21] LABS: TOTAL PROTEIN 7.3 g/dL (6.4-8.3)
[2019-09-23 06:23] LABS: TOTAL BILIRUBIN 0.2 mg/dL (0.2-1.2)
[2019-09-23 06:53] LABS: ERYTHROCYTE SEDIMENTATION RATE 72 mm/hr (0-30)
[2019-09-24 02:54] VITALS: BP 112/70
[2019-09-24 06:35] VITALS: BP 109/63
[2019-09-24 10:43] VITALS: BP 123/63
[2019-09-24 15:00] VITALS: BP 106/67
[2019-09-24 17:38] VITALS: BP 100/64
[2019-09-24 22:40] VITALS: BP 117/67
[2019-09-25 02:58] VITALS: BP 123/75
[2019-09-25 06:25] VITALS: BP 134/62
[2019-09-25 11:21] VITALS: BP 110/74
[2019-09-25 15:20] VITALS: BP 114/64
[2019-09-25 18:02] VITALS: BP 102/67
[2019-09-25 22:45] VITALS: BP 105/65
[2019-09-26 02:27] VITALS: BP 102/70
[2019-09-26 06:19] VITALS: BP 96/56
[2019-09-26 11:02] VITALS: BP 109/71
[2019-09-26 15:16] VITALS: BP 111/70
[2019-09-26 17:53] VITALS: BP 115/67
[2019-09-26 22:22] VITALS: BP 104/70
[2019-09-27 03:48] VITALS: BP 104/63
[2019-09-27 06:20] VITALS: BP 100/64
[2019-09-27] MEDS ORDERED: LEVAQUIN 750MG750 M1 PO (09:12)
[2019-09-27] MEDS ORDERED: CLEOCIN HCL300 MG PO (09:13)
[2019-09-27 09:32] LABS: EOS # 0.1 (0.04-0.40); EOS % 1.3 % (1.0-5.0); HEMATOCRIT 38.4 % (37.0-47.0); HEMOGLOBIN 12.5 g/dL (12.5-16.0); MEAN CELL VOLUME 88 fl (78-100); MEAN CORPUSCULAR HEMOGLOBIN 29 pg (27-31); MEAN CORPUSCULAR HGB CONC 33 g/dL (33-37); MEAN PLATELET VOLUME 9.4 fl (7.4-10.4); MONO # 0.4 (0.20-0.80); NEU # 6.3 (1.40-6.50); PLATELET COUNT 275 K/mm3 (130-400); RED BLOOD COUNT 4.35 M/mm3 (4.10-5.30); WHITE BLOOD COUNT 8.9 K/mm3 (4.8-10.8)
[2019-09-27 09:50] LABS: POTASSIUM 3.9 mmol/L (3.5-5.1)
[2019-09-27 09:51] LABS: CALCIUM 9.5 mg/dL (8.3-10.5)
[2019-09-27 10:49] LABS: ERYTHROCYTE SEDIMENTATION RATE 45 mm/hr (0-30)
[2019-09-27 10:50] VITALS: BP 120/74
[2019-09-27 11:20] VITALS: BP 104/69
== END 2019-09-27 12:20 | disposition home or self-care (01) | DRG 603 ==
LOC: ED 15:56 → MED/SURG 18:00
PROVIDERS: Nurse Practitioner; ADMIT Nurse Practitioner Primary Care
DX: L03.032 Cellulitis of left toe (principal); L03.031 Cellulitis of right toe; E11.40 Type 2 diabetes mellitus with diabetic neuropathy, unspecified; E11.621 Type 2 diabetes mellitus with foot ulcer; L97.529 Non-pressure chronic ulcer of other part of left foot with unspecified severity; B96.5 Pseudomonas (aeruginosa) (mallei) (pseudomallei) as the cause of diseases classified elsewhere; A49.01 Methicillin susceptible Staphylococcus aureus infection, unspecified site; G47.33 Obstructive sleep apnea (adult) (pediatric); I10 Essential (primary) hypertension; E78.5 Hyperlipidemia, unspecified; E03.9 Hypothyroidism, unspecified; J45.909 Unspecified asthma, uncomplicated; G20 Parkinson's disease; I87.2 Venous insufficiency (chronic) (peripheral)
CPT/HCPCS: J1650; J1956; J2543; J7030

== ENCOUNTER → 2019-12-01 | Outpatient (CLI) | payer OTHER ==
[~2019-12-01] MED LIST changes: +CLEOCIN HCL300 MG PO; +FUROSEMIDE20 MG PO; +LEVAQUIN 750MG750 M1 PO; +METFORMIN ER500 MG PO; +ROPINIROLE12 MG PO
== END ==
LOC: RAD 09:30
DX: M41.86 Other forms of scoliosis, lumbar region (principal); M51.36 Other intervertebral disc degeneration, lumbar region; M16.11 Unilateral primary osteoarthritis, right hip

== ENCOUNTER → 2020-01-13 | Outpatient (CLI) | payer OTHER | LOC: RAD 11:48 | DX: M48.04 Spinal stenosis, thoracic region (principal); M48.061 Spinal stenosis, lumbar region without neurogenic claudication; M43.8X6 Other specified deforming dorsopathies, lumbar region; M47.816 Spondylosis without myelopathy or radiculopathy, lumbar region; M43.16 Spondylolisthesis, lumbar region; M43.8X4 Other specified deforming dorsopathies, thoracic region ==

== ENCOUNTER → 2020-01-20 | Outpatient (CLI) | payer OTHER ==
[2020-01-20 10:31] LABS: EOS # 0.2 (0.04-0.40); HEMOGLOBIN 12.4 g/dL (12.5-16.0); LYMPH# 2.2 (1.50-4.00); MEAN CELL VOLUME 88 fl (78-100); MEAN CORPUSCULAR HEMOGLOBIN 29 pg (27-31); MEAN CORPUSCULAR HGB CONC 33 g/dL (33-37); MONO # 0.3 (0.20-0.80); NEU # 4.8 (1.40-6.50); PLATELET COUNT 229 K/mm3 (130-400); RED CELL DISTRIBUTION WIDTH 13.1 % (11.5-14.5); WHITE BLOOD COUNT 7.6 K/mm3 (4.8-10.8)
[2020-01-20 10:39] LABS: ALBUMIN 4.2 g/dL (3.5-5.0); POTASSIUM 3.5 mmol/L (3.5-5.1)
[2020-01-20 10:40] LABS: CALCIUM 10.3 mg/dL (8.3-10.5)
[2020-01-20 10:42] LABS: TOTAL PROTEIN 7.1 g/dL (6.4-8.3)
[2020-01-20 10:43] LABS: TOTAL BILIRUBIN 0.3 mg/dL (0.2-1.2)
== END ==
LOC: LAB 10:17
PROVIDERS: Internal Medicine
DX: Z01.419 Encounter for gynecological examination (general) (routine) without abnormal findings (principal); J45.901 Unspecified asthma with (acute) exacerbation; E11.9 Type 2 diabetes mellitus without complications; R25.1 Tremor, unspecified; D51.9 Vitamin B12 deficiency anemia, unspecified; E03.4 Atrophy of thyroid (acquired); Z20.828 Contact with and (suspected) exposure to other viral communicable diseases

== ENCOUNTER 2020-01-26 08:35 | Outpatient (RCR) | payer OTHER | END 2020-01-26 09:00 | disposition still patient (30) | LOC: SPEECH 08:35 | DX: G20 Parkinson's disease (principal); R41.3 Other amnesia; R41.841 Cognitive communication deficit ==

== ENCOUNTER 2020-04-26 08:00 | Outpatient (RCR) | payer OTHER | END 2020-04-26 08:30 | disposition still patient (30) | LOC: PT 08:00 | DX: M47.816 Spondylosis without myelopathy or radiculopathy, lumbar region (principal) ==

== ENCOUNTER → 2020-05-30 | Outpatient (CLI) | payer OTHER ==
[2020-05-30 15:20] LABS: URINE APPEARANCE CLEAR; URINE BILIRUBIN NEGATIVE (NEGATIVE); URINE COLOR YELLOW; URINE GLUCOSE NEGATIVE (NEGATIVE); URINE KETONE NEGATIVE (NEGATIVE); URINE PROTEIN(semi-quant) NEGATIVE (NEGATIVE)
[2020-05-30 15:22] LABS: URINE BLOOD NEGATIVE (NEGATIVE); URINE LEUKOCYTE ESTERASE NEGATIVE (NEGATIVE); URINE NITRATE NEGATIVE (NEGATIVE); URINE UROBILINOGEN NORMAL (NORMAL); URINE WBC 0-1 /hpf (0-3)
[2020-05-31 13:23] LABS: ANA SCREEN with REFLEX Negative (Negative)
[2020-05-31 20:38] LABS: C-ANCA 15 U/mL (0-99)
== END ==
LOC: LAB 14:21
PROVIDERS: Internal Medicine
DX: G32.81 Cerebellar ataxia in diseases classified elsewhere (principal); G63 Polyneuropathy in diseases classified elsewhere; G93.49 Other encephalopathy; R10.84 Generalized abdominal pain

== ENCOUNTER 2020-06-09 13:58 | Outpatient (RCR) | payer OTHER | END 2020-09-07 | disposition still patient (30) | LOC: PT | DX: M47.816 Spondylosis without myelopathy or radiculopathy, lumbar region (principal) ==

== ENCOUNTER → 2020-08-07 | Outpatient (CLI) | payer OTHER ==
[2020-08-07 09:58] LABS: EOS # 0.3 (0.04-0.40); EOS % 5.1 % (1.0-5.0); HEMATOCRIT 35.6 % (37.0-47.0); HEMOGLOBIN 11.6 g/dL (12.5-16.0); LYMPH# 2.1 (1.50-4.00); MEAN CELL VOLUME 89 fl (78-100); MEAN CORPUSCULAR HEMOGLOBIN 29 pg (27-31); MEAN CORPUSCULAR HGB CONC 33 g/dL (33-37); MEAN PLATELET VOLUME 10.2 fl (7.4-10.4); MONO # 0.4 (0.20-0.80); NEU # 3.8 (1.40-6.50); PLATELET COUNT 207 K/mm3 (130-400); RED BLOOD COUNT 4.01 M/mm3 (4.10-5.30); RED CELL DISTRIBUTION WIDTH 12.9 % (11.5-14.5); WHITE BLOOD COUNT 6.7 K/mm3 (4.8-10.8)
[2020-08-07 10:05] LABS: ALBUMIN 4.3 g/dL (3.4-4.8); POTASSIUM 4.6 mmol/L (3.5-5.1)
[2020-08-07 10:06] LABS: CALCIUM 9.5 mg/dL (8.3-10.5)
[2020-08-07 10:09] LABS: TOTAL BILIRUBIN 0.3 mg/dL (0.2-1.2)
== END ==
LOC: LAB 09:45
PROVIDERS: Internal Medicine
DX: Z01.419 Encounter for gynecological examination (general) (routine) without abnormal findings (principal); I10 Essential (primary) hypertension; J45.901 Unspecified asthma with (acute) exacerbation; E03.4 Atrophy of thyroid (acquired); D51.9 Vitamin B12 deficiency anemia, unspecified; E11.42 Type 2 diabetes mellitus with diabetic polyneuropathy; K90.9 Intestinal malabsorption, unspecified; R25.1 Tremor, unspecified

== ENCOUNTER → 2020-08-08 | Outpatient (CLI) | payer OTHER ==
[2020-08-08 09:25] LABS: URINE APPEARANCE CLEAR; URINE BILIRUBIN NEGATIVE (NEGATIVE); URINE BLOOD NEGATIVE (NEGATIVE); URINE COLOR YELLOW; URINE GLUCOSE NEGATIVE (NEGATIVE); URINE KETONE NEGATIVE (NEGATIVE); URINE LEUKOCYTE ESTERASE NEGATIVE (NEGATIVE); URINE NITRATE NEGATIVE (NEGATIVE); URINE PROTEIN(semi-quant) NEGATIVE (NEGATIVE); URINE UROBILINOGEN NORMAL (NORMAL); URINE WBC 0-1 /hpf (0-3)
== END ==
LOC: LAB 08:49
PROVIDERS: Internal Medicine
DX: Z00.00 Encounter for general adult medical examination without abnormal findings (principal); I10 Essential (primary) hypertension; J45.901 Unspecified asthma with (acute) exacerbation; D51.9 Vitamin B12 deficiency anemia, unspecified; E11.9 Type 2 diabetes mellitus without complications; Z20.828 Contact with and (suspected) exposure to other viral communicable diseases; R25.1 Tremor, unspecified

== ENCOUNTER → 2020-11-16 | Outpatient (CLI) | payer OTHER | LOC: LAB 14:31 | DX: R19.7 Diarrhea, unspecified (principal); R51.9 Headache, unspecified; R53.83 Other fatigue; M79.10 Myalgia, unspecified site; Z20.828 Contact with and (suspected) exposure to other viral communicable diseases ==

== ENCOUNTER → 2020-11-30 | Outpatient (CLI) | payer OTHER ==
[2020-11-30 15:41] LABS: EOS # 0.4 (0.04-0.40); EOS % 3.7 % (1.0-5.0); HEMATOCRIT 38.2 % (37.0-47.0); HEMOGLOBIN 12.4 g/dL (12.5-16.0); MEAN CELL VOLUME 89 fl (78-100); MEAN CORPUSCULAR HEMOGLOBIN 29 pg (27-31); MEAN CORPUSCULAR HGB CONC 33 g/dL (33-37); MEAN PLATELET VOLUME 10.1 fl (7.4-10.4); MONO # 0.7 (0.20-0.80); NEU # 6.9 (1.40-6.50); PLATELET COUNT 266 K/mm3 (130-400); RED CELL DISTRIBUTION WIDTH 13.1 % (11.5-14.5); WHITE BLOOD COUNT 11.1 K/mm3 (4.8-10.8)
[2020-11-30 15:50] LABS: ALBUMIN 4.3 g/dL (3.4-4.8); POTASSIUM 4.3 mmol/L (3.5-5.1)
[2020-11-30 15:51] LABS: CALCIUM 9.1 mg/dL (8.3-10.5)
[2020-11-30 15:54] LABS: TOTAL BILIRUBIN 0.3 mg/dL (0.2-1.2)
[2020-11-30 15:59] LABS: MAGNESIUM 1.26 mg/dL (1.60-2.60)
== END ==
LOC: LAB 15:12
PROVIDERS: Internal Medicine
DX: E03.4 Atrophy of thyroid (acquired) (principal); I10 Essential (primary) hypertension; E11.9 Type 2 diabetes mellitus without complications

== ENCOUNTER 2021-01-15 10:00 | Outpatient (RCR) | payer OTHER | END 2021-02-28 | disposition home or self-care (01) | LOC: PT | DX: M47.816 Spondylosis without myelopathy or radiculopathy, lumbar region (principal) ==

== ENCOUNTER → 2021-01-18 | Outpatient (CLI) | payer OTHER ==
[~2021-01-18] MED LIST changes: +CEPHALEXIN500 M1 PO; +LEVEMIR FLEX100 U/ML SQ; +OMEPRAZOLE40 MG PO; +ORPHENADRINE C100 MG PO; +TRULICITY1.5 MG/0.5 SC
== END ==
LOC: MAMMO 08:30 → LAB 08:34
DX: Z12.31 Encounter for screening mammogram for malignant neoplasm of breast (principal); G47.33 Obstructive sleep apnea (adult) (pediatric)

== ENCOUNTER → 2021-03-01 | Outpatient (CLI) | payer OTHER | LOC: LAB 13:49 | DX: E78.5 Hyperlipidemia, unspecified (principal); E11.9 Type 2 diabetes mellitus without complications ==

== ENCOUNTER 2021-03-05 14:00 | Outpatient (RCR) | payer OTHER ==
[~2021-03-05 14:00] MED LIST changes: -CEPHALEXIN500 M1 PO; -LEVEMIR FLEX100 U/ML SQ; -OMEPRAZOLE40 MG PO; -ORPHENADRINE C100 MG PO; -TRULICITY1.5 MG/0.5 SC
== END 2021-03-05 17:00 | disposition home or self-care (01) ==
LOC: PT 14:00
DX: R27.0 Ataxia, unspecified (principal)

== ENCOUNTER → 2021-05-24 | Outpatient (CLI) | payer OTHER ==
[~2021-05-24] MED LIST changes: +CEPHALEXIN500 M1 PO; +LEVEMIR FLEX100 U/ML SQ; +OMEPRAZOLE40 MG PO; +ORPHENADRINE C100 MG PO; +TRULICITY1.5 MG/0.5 SC
[2021-05-24 10:27] LABS: BASO # 0.04 (0.02-0.10); EOS # 0.53 (0.04-0.40); EOS % 6.1 % (1.0-5.0); HEMATOCRIT 36.2 % (37.0-47.0); LYMPH# 2.27 (1.50-4.00); MEAN CELL VOLUME 88 fl (78-100); MEAN CORPUSCULAR HEMOGLOBIN 29 pg (27-31); MEAN CORPUSCULAR HGB CONC 33 g/dL (33-37); MEAN PLATELET VOLUME 10.1 fl (7.4-10.4); MONO # 0.46 (0.20-0.80); NEU # 5.38 (1.40-6.50); PLATELET COUNT 207 K/mm3 (130-400); RED BLOOD COUNT 4.13 M/mm3 (4.10-5.30); RED CELL DISTRIBUTION WIDTH 13.2 % (11.5-14.5); WHITE BLOOD COUNT 8.7 K/mm3 (4.8-10.8)
[2021-05-24 10:34] LABS: ALBUMIN 3.8 g/dL (3.4-4.8); POTASSIUM 4.8 mmol/L (3.5-5.1)
[2021-05-24 10:35] LABS: CALCIUM 8.6 mg/dL (8.3-10.5)
[2021-05-24 10:36] LABS: TOTAL PROTEIN 6.7 g/dL (6.2-8.1)
[2021-05-24 10:38] LABS: TOTAL BILIRUBIN 0.3 mg/dL (0.2-1.2)
== END ==
LOC: LAB 10:06
PROVIDERS: Internal Medicine
DX: E11.9 Type 2 diabetes mellitus without complications (principal); K90.9 Intestinal malabsorption, unspecified

== ENCOUNTER 2021-06-03 10:13 | Emergency (ER) | payer OTHER ==
[~2021-06-03 10:13] MED LIST changes: -CEPHALEXIN500 M1 PO; -LEVEMIR FLEX100 U/ML SQ; -OMEPRAZOLE40 MG PO; -ORPHENADRINE C100 MG PO; -TRULICITY1.5 MG/0.5 SC
[2021-06-03] MEDS ORDERED: CEPHALEXIN500 M1 PO (11:00)
[2021-06-03] MEDS ORDERED: OMEPRAZOLE40 MG PO (11:01)
[2021-06-03] MEDS ORDERED: TRULICITY1.5 MG/0.5 SC (11:01)
[2021-06-03] MEDS ORDERED: LEVEMIR FLEX100 U/ML SQ (11:01)
[2021-06-03] MEDS ORDERED: MELOXICAM15 MG PO (11:01)
[2021-06-03 12:46] LABS: BASO # 0.04 (0.02-0.10); EOS # 0.42 (0.04-0.40); EOS % 4.5 % (1.0-5.0); HEMATOCRIT 38.5 % (37.0-47.0); HEMOGLOBIN 12.5 g/dL (12.5-16.0); LYMPH# 2.13 (1.50-4.00); MEAN CELL VOLUME 90 fl (78-100); MEAN CORPUSCULAR HEMOGLOBIN 29 pg (27-31); MEAN CORPUSCULAR HGB CONC 33 g/dL (33-37); MEAN PLATELET VOLUME 10.5 fl (7.4-10.4); MONO # 0.52 (0.20-0.80); NEU # 6.27 (1.40-6.50); PLATELET COUNT 212 K/mm3 (130-400); RED BLOOD COUNT 4.28 M/mm3 (4.10-5.30); RED CELL DISTRIBUTION WIDTH 13.1 % (11.5-14.5); WHITE BLOOD COUNT 9.4 K/mm3 (4.8-10.8)
[2021-06-03] MEDS ORDERED: ORPHENADRINE C100 MG PO (12:54)
[2021-06-03 13:03] VITALS: BP 107/51
== END 2021-06-03 13:03 | disposition home or self-care (01) ==
LOC: ED 10:13
PROVIDERS: Family Medicine
DX: M54.2 Cervicalgia (principal); I11.0 Hypertensive heart disease with heart failure; I50.9 Heart failure, unspecified; E11.9 Type 2 diabetes mellitus without complications; E78.5 Hyperlipidemia, unspecified; J44.9 Chronic obstructive pulmonary disease, unspecified; E03.9 Hypothyroidism, unspecified; F32.9 Major depressive disorder, single episode, unspecified; Z79.899 Other long term (current) drug therapy; Z79.890 Hormone replacement therapy; Z79.4 Long term (current) use of insulin
CPT/HCPCS: J2360

== ENCOUNTER → 2021-08-27 | Outpatient (CLI) | payer OTHER ==
[~2021-08-27] MED LIST changes: +CEPHALEXIN500 M1 PO; +LEVEMIR FLEX100 U/ML SQ; +OMEPRAZOLE40 MG PO; +ORPHENADRINE C100 MG PO; +TRULICITY1.5 MG/0.5 SC
[2021-08-27 11:32] LABS: POTASSIUM 4.4 mmol/L (3.5-5.1)
[2021-08-27 11:34] LABS: CALCIUM 9.6 mg/dL (8.3-10.5)
[2021-08-27 11:35] LABS: TOTAL PROTEIN 6.7 g/dL (6.2-8.1)
[2021-08-27 11:37] LABS: TOTAL BILIRUBIN 0.3 mg/dL (0.2-1.2)
== END ==
LOC: LAB 10:58
PROVIDERS: Internal Medicine
DX: E11.9 Type 2 diabetes mellitus without complications (principal); K90.9 Intestinal malabsorption, unspecified

== ENCOUNTER → 2021-10-08 | Outpatient (CLI) | payer OTHER ==
[2021-10-08 11:35] LABS: URINE APPEARANCE CLEAR; URINE BILIRUBIN NEGATIVE (NEGATIVE); URINE BLOOD NEGATIVE (NEGATIVE); URINE COLOR YELLOW; URINE GLUCOSE NEGATIVE (NEGATIVE); URINE KETONE NEGATIVE (NEGATIVE); URINE LEUKOCYTE ESTERASE NEGATIVE (NEGATIVE); URINE NITRATE NEGATIVE (NEGATIVE); URINE PROTEIN(semi-quant) NEGATIVE (NEGATIVE); URINE UROBILINOGEN NORMAL (NORMAL)
[2021-10-08 11:36] LABS: URINE MUCUS PRESENT (NOT PRESENT)
== END ==
LOC: RAD 10:15
PROVIDERS: Internal Medicine
DX: R10.31 Right lower quadrant pain (principal)

== ENCOUNTER → 2021-10-09 | Outpatient (CLI) | payer OTHER | LOC: RAD 13:30 | DX: R10.31 Right lower quadrant pain (principal); Z90.710 Acquired absence of both cervix and uterus | CPT/HCPCS: Q9967 ==

== ENCOUNTER → 2021-12-20 | Day surgery (SDC) | payer OTHER | LOC: MSO 07:32 | DX: K21.00 Gastro-esophageal reflux disease with esophagitis, without bleeding (principal); K29.60 Other gastritis without bleeding; R19.7 Diarrhea, unspecified; D50.9 Iron deficiency anemia, unspecified; I11.0 Hypertensive heart disease with heart failure; I50.9 Heart failure, unspecified; E78.5 Hyperlipidemia, unspecified; G47.33 Obstructive sleep apnea (adult) (pediatric); J45.909 Unspecified asthma, uncomplicated; G20 Parkinson's disease; E11.40 Type 2 diabetes mellitus with diabetic neuropathy, unspecified; F98.8 Other specified behavioral and emotional disorders with onset usually occurring in childhood and adolescence; F32.9 Major depressive disorder, single episode, unspecified; E03.9 Hypothyroidism, unspecified; Z87.442 Personal history of urinary calculi | CPT/HCPCS: 00813; J2704; J7120 ==

== ENCOUNTER → 2022-01-17 | Outpatient (CLI) | payer OTHER | LOC: RAD 14:00 | DX: M51.16 Intervertebral disc disorders with radiculopathy, lumbar region (principal); M48.061 Spinal stenosis, lumbar region without neurogenic claudication; M48.07 Spinal stenosis, lumbosacral region | CPT/HCPCS: A9585 ==

== ENCOUNTER 2022-01-22 14:01 | Outpatient (RCR) | payer OTHER | END 2022-02-14 | disposition home or self-care (01) | LOC: PT | DX: M47.814 Spondylosis without myelopathy or radiculopathy, thoracic region (principal) ==

== ENCOUNTER 2022-02-19 12:57 | Outpatient (RCR) | payer OTHER | END 2022-03-16 | disposition home or self-care (01) | LOC: PT | DX: M47.814 Spondylosis without myelopathy or radiculopathy, thoracic region (principal) ==

== ENCOUNTER 2022-03-18 14:15 | Outpatient (RCR) | payer OTHER | END 2022-04-16 | disposition home or self-care (01) | LOC: PT | DX: M47.814 Spondylosis without myelopathy or radiculopathy, thoracic region (principal) ==

== ENCOUNTER 2022-04-29 14:00 | Outpatient (RCR) | payer OTHER | END 2022-05-16 | disposition still patient (30) | LOC: PT | DX: M47.814 Spondylosis without myelopathy or radiculopathy, thoracic region (principal) ==

== ENCOUNTER 2022-05-27 17:38 | Emergency (ER) | payer OTHER ==
[2022-05-27] MEDS ORDERED: PREGABALIN300 MG PO (17:45)
[2022-05-27 18:02] LABS: BASO # 0.01 K/mm3 (0.02-0.10); HEMATOCRIT 33.4 % (37.0-47.0); HEMOGLOBIN 10.9 g/dL (12.5-16.0); LYMPH# 0.62 K/mm3 (1.50-4.00); MEAN CELL VOLUME 90 fl (78-100); MEAN CORPUSCULAR HEMOGLOBIN 29 pg (27-31); MEAN CORPUSCULAR HGB CONC 33 g/dL (33-37); MEAN PLATELET VOLUME 10.9 fl (7.4-10.4); MONO # 0.37 K/mm3 (0.20-0.80); NEU # 2.64 K/mm3 (1.40-6.50); PLATELET COUNT 167 K/mm3 (130-400); RED BLOOD COUNT 3.73 M/mm3 (4.10-5.30); WHITE BLOOD COUNT 3.7 K/mm3 (4.8-10.8)
[2022-05-27 18:14] LABS: POTASSIUM 4.3 mmol/L (3.5-5.1); SODIUM 142 mmol/L (136-145)
[2022-05-27] MEDS ORDERED: MORGIDOX 2X100100 MG PO (18:14)
[2022-05-27 18:16] LABS: GLUCOSE 97 mg/dL (65-105)
[2022-05-27 18:17] LABS: TOTAL PROTEIN 6.8 g/dL (6.2-8.1)
[2022-05-27 18:18] LABS: CARBON DIOXIDE 23 mmol/L (23-31); D-DIMER 0.83 mg/L FEU (0.15-0.50); TOTAL BILIRUBIN 0.3 mg/dL (0.2-1.2)
[2022-05-27 18:22] LABS: AST-SGOT 38 U/L (5-34)
[2022-05-27 18:23] LABS: ALT/SGPT 36 U/L (0-55)
[2022-05-27 18:38] LABS: TROPONIN-I < 0.030 ng/mL (<0.030)
[2022-05-27 18:39] LABS: PROTHROMBIN TIME 10.9 SECONDS (9.0-12.0)
[2022-05-27 20:17] VITALS: BP 102/53
== END 2022-05-27 20:52 | disposition short-term general hospital (02) ==
LOC: ED 17:38
PROVIDERS: Nurse Practitioner
DX: U07.1 COVID-19 (principal); Z73.0 Burn-out; Z99.81 Dependence on supplemental oxygen
CPT/HCPCS: J1100; Q9967

== ENCOUNTER → 2022-07-10 | Outpatient (CLI) | payer OTHER ==
[~2022-07-10] MED LIST changes: +MORGIDOX 2X100100 MG PO; +PREGABALIN300 MG PO
== END ==
LOC: RAD 11:00
DX: M51.36 Other intervertebral disc degeneration, lumbar region (principal); M41.85 Other forms of scoliosis, thoracolumbar region; M17.11 Unilateral primary osteoarthritis, right knee; M25.762 Osteophyte, left knee

== ENCOUNTER 2022-07-27 16:01 | Emergency (ER) | payer OTHER ==
[~2022-07-27] VITALS: Ht 152.4 cm; Wt 2.4 kg
[2022-07-27 16:29] LABS: BASO # 0.04 K/mm3 (0.02-0.10); EOS # 0.18 K/mm3 (0.04-0.40); EOS % 2.8 % (1.0-5.0); HEMATOCRIT 38.6 % (37.0-47.0); HEMOGLOBIN 12.6 g/dL (12.5-16.0); LYMPH# 2.42 K/mm3 (1.50-4.00); MEAN CELL VOLUME 90 fl (78-100); MEAN CORPUSCULAR HEMOGLOBIN 29 pg (27-31); MEAN CORPUSCULAR HGB CONC 33 g/dL (33-37); MEAN PLATELET VOLUME 10.4 fl (7.4-10.4); MONO # 0.38 K/mm3 (0.20-0.80); NEU # 3.36 K/mm3 (1.40-6.50); PLATELET COUNT 222 K/mm3 (130-400); RED BLOOD COUNT 4.31 M/mm3 (4.10-5.30); RED CELL DISTRIBUTION WIDTH 13.2 % (11.5-14.5); WHITE BLOOD COUNT 6.4 K/mm3 (4.8-10.8)
[2022-07-27 16:33] LABS: ALBUMIN 4.6 g/dL (3.4-4.8); POTASSIUM 4.3 mmol/L (3.5-5.1)
[2022-07-27 16:34] LABS: CALCIUM 10.3 mg/dL (8.3-10.5)
[2022-07-27 16:35] LABS: TOTAL PROTEIN 7.6 g/dL (6.2-8.1)
[2022-07-27] MEDS ORDERED: OMEPRAZOLE40 MG PO (16:35)
[2022-07-27] MEDS ORDERED: ARICEPT10 M1 PO (16:35)
[2022-07-27] MEDS ORDERED: PRISTIQ ER25 MG PO (16:36)
[2022-07-27 16:37] LABS: TOTAL BILIRUBIN 0.4 mg/dL (0.2-1.2)
[2022-07-27] MEDS ORDERED: ALDACTONE 25MG25 MG PO (16:37)
[2022-07-27] MEDS ORDERED: ZINC50 M5 PO (16:37)
[2022-07-27] MEDS ORDERED: NATURE'S BLEND500 M5 PO (16:37)
[2022-07-27] MEDS ORDERED: FEROSUL325 M1 PO (16:40)
[2022-07-27 18:24] LABS: URINE WBC 0 /hpf (0-3)
[2022-07-27 18:58] LABS: URINE APPEARANCE CLEAR; URINE COLOR YELLOW
[2022-07-27 18:59] LABS: URINE BILIRUBIN NEGATIVE (NEGATIVE); URINE GLUCOSE NEGATIVE (NEGATIVE); URINE KETONE NEGATIVE (NEGATIVE); URINE NITRATE NEGATIVE (NEGATIVE); URINE PROTEIN(semi-quant) NEGATIVE (NEGATIVE); URINE UROBILINOGEN NORMAL (NORMAL)
[2022-07-27 19:00] LABS: URINE BLOOD 50 ery/uL (NEGATIVE); URINE LEUKOCYTE ESTERASE NEGATIVE (NEGATIVE)
[2022-07-27 19:27] VITALS: BP 141/74
== END 2022-07-27 19:28 | disposition home or self-care (01) ==
LOC: ED 16:01
PROVIDERS: Nurse Practitioner
DX: K62.5 Hemorrhage of anus and rectum (principal); E66.9 Obesity, unspecified; Z68.1 Body mass index [BMI] 19.9 or less, adult

== ENCOUNTER 2022-08-22 10:05 | Outpatient (RCR) | payer OTHER ==
[~2022-08-22 10:05] MED LIST changes: +ARICEPT10 M1 PO; +NATURE'S BLEND500 M5 PO; +PRISTIQ ER25 MG PO; +ZINC50 M5 PO
== END 2022-09-16 | disposition still patient (30) ==
LOC: PT
DX: R26.89 Other abnormalities of gait and mobility (principal)

== ENCOUNTER 2022-08-22 10:07 | Outpatient (RCR) | payer OTHER | END 2022-09-16 | LOC: SPEECH | DX: G31.84 Mild cognitive impairment of uncertain or unknown etiology (principal) ==

== ENCOUNTER 2022-09-19 09:52 | Outpatient (RCR) | payer OTHER | END 2022-10-16 | disposition home or self-care (01) | LOC: PT | DX: R26.89 Other abnormalities of gait and mobility (principal) ==

== ENCOUNTER 2022-09-19 09:52 | Outpatient (RCR) | payer OTHER | END 2022-10-16 | disposition still patient (30) | LOC: SPEECH | DX: G31.84 Mild cognitive impairment of uncertain or unknown etiology (principal) ==

== ENCOUNTER 2022-11-19 08:00 | Outpatient (RCR) | payer OTHER | END 2022-12-17 | disposition home or self-care (01) | LOC: PT | DX: R26.89 Other abnormalities of gait and mobility (principal) ==

== ENCOUNTER 2022-12-19 09:42 | Emergency (ER) | payer OTHER ==
[~2022-12-19] VITALS: Wt 85.1 kg
[2022-12-19] MEDS ORDERED: POLYMYXIN B/TRI10 M1 OP (10:17)
[2022-12-19 10:28] LABS: BASO # 0.02 K/mm3 (0.02-0.10); EOS # 0.33 K/mm3 (0.04-0.40); EOS % 5.6 % (1.0-5.0); HEMATOCRIT 31.9 % (37.0-47.0); HEMOGLOBIN 10.6 g/dL (12.5-16.0); MEAN CELL VOLUME 89 fl (78-100); MEAN CORPUSCULAR HEMOGLOBIN 29 pg (27-31); MEAN CORPUSCULAR HGB CONC 33 g/dL (33-37); MEAN PLATELET VOLUME 10.8 fl (7.4-10.4); MONO # 0.39 K/mm3 (0.20-0.80); NEU # 2.67 K/mm3 (1.40-6.50); PLATELET COUNT 195 K/mm3 (130-400); WHITE BLOOD COUNT 5.9 K/mm3 (4.8-10.8)
[2022-12-19 10:35] LABS: ALBUMIN 3.7 g/dL (3.4-4.8); POTASSIUM 4.5 mmol/L (3.5-5.1)
[2022-12-19 10:36] LABS: CALCIUM 9.1 mg/dL (8.3-10.5)
[2022-12-19 10:38] LABS: TOTAL PROTEIN 6.3 g/dL (6.2-8.1)
[2022-12-19 10:39] LABS: TOTAL BILIRUBIN 0.2 mg/dL (0.2-1.2)
[2022-12-19] MEDS ORDERED: MORGIDOX 1X100100 MG PO (11:05)
[2022-12-19] MEDS ORDERED: PREDNISONE20 MG PO (11:05)
[2022-12-19 11:37] VITALS: BP 123/61
== END 2022-12-19 11:38 | disposition home or self-care (01) ==
LOC: ED 09:42
PROVIDERS: Family Medicine
DX: J45.901 Unspecified asthma with (acute) exacerbation (principal); J06.9 Acute upper respiratory infection, unspecified
CPT/HCPCS: J2930

== ENCOUNTER → 2023-11-21 | Outpatient (CLI) | payer OTHER ==
[~2023-11-21] MED LIST changes: +MORGIDOX 1X100100 MG PO; +POLYMYXIN B/TRI10 M1 OP; +PREDNISONE20 MG PO
[2023-11-21 10:46] LABS: BASO # 0.02 K/mm3 (0.02-0.10); HEMATOCRIT 37.1 % (37.0-47.0); HEMOGLOBIN 12.3 g/dL (12.5-16.0); LYMPH# 2.36 K/mm3 (1.50-4.00); MEAN CELL VOLUME 87 fl (78-100); MEAN CORPUSCULAR HEMOGLOBIN 29 pg (27-31); MEAN CORPUSCULAR HGB CONC 33 g/dL (33-37); MEAN PLATELET VOLUME 10.1 fl (7.4-10.4); MONO # 0.47 K/mm3 (0.20-0.80); NEU # 5.33 K/mm3 (1.40-6.50); PLATELET COUNT 239 K/mm3 (130-400); RED BLOOD COUNT 4.27 M/mm3 (4.10-5.30); RED CELL DISTRIBUTION WIDTH 13.5 % (11.5-14.5); WHITE BLOOD COUNT 8.2 K/mm3 (4.8-10.8)
[2023-11-21 10:48] LABS: ALBUMIN 4.2 g/dL (3.4-4.8)
[2023-11-21 10:51] LABS: TOTAL PROTEIN 7.1 g/dL (6.2-8.1)
[2023-11-21 10:52] LABS: TOTAL BILIRUBIN 0.3 mg/dL (0.2-1.2)
== END ==
LOC: LAB 10:29
PROVIDERS: Nurse Practitioner Family
DX: R10.11 Right upper quadrant pain (principal)

== ENCOUNTER → 2023-12-22 | Outpatient (CLI) | payer OTHER ==
[2023-12-22 09:46] LABS: MEAN CELL VOLUME 90 fl (78-100); MEAN CORPUSCULAR HEMOGLOBIN 29 pg (27-31); MEAN CORPUSCULAR HGB CONC 32 g/dL (33-37); MEAN PLATELET VOLUME 10.3 fl (7.4-10.4); MONO # 0.39 K/mm3 (0.20-0.80); NEU # 3.54 K/mm3 (1.40-6.50); PLATELET COUNT 210 K/mm3 (130-400); RED BLOOD COUNT 4.13 M/mm3 (4.10-5.30); RED CELL DISTRIBUTION WIDTH 13.3 % (11.5-14.5); WHITE BLOOD COUNT 6.2 K/mm3 (4.8-10.8)
[2023-12-22 09:50] LABS: ALBUMIN 4.2 g/dL (3.4-4.8)
== END ==
LOC: RAD 08:55
PROVIDERS: Internal Medicine Nephrology
DX: I12.9 Hypertensive chronic kidney disease with stage 1 through stage 4 chronic kidney disease, or unspecified chronic kidney disease (principal); E11.21 Type 2 diabetes mellitus with diabetic nephropathy; N18.2 Chronic kidney disease, stage 2 (mild); N17.9 Acute kidney failure, unspecified; M10.9 Gout, unspecified

== ENCOUNTER → 2024-04-28 | Outpatient (CLI) | payer MEDICARE, OTHER | LOC: LAB 16:15 | DX: I12.9 Hypertensive chronic kidney disease with stage 1 through stage 4 chronic kidney disease, or unspecified chronic kidney disease (principal); E11.21 Type 2 diabetes mellitus with diabetic nephropathy; N18.2 Chronic kidney disease, stage 2 (mild); M10.9 Gout, unspecified ==

== ENCOUNTER → 2024-05-27 | Outpatient (CLI) | payer MEDICARE, OTHER ==
[2024-05-27 09:08] LABS: CALCIUM 8.9 mg/dL (8.3-10.5)
== END ==
LOC: LAB 08:50
PROVIDERS: Internal Medicine Nephrology
DX: E11.21 Type 2 diabetes mellitus with diabetic nephropathy (principal); I12.9 Hypertensive chronic kidney disease with stage 1 through stage 4 chronic kidney disease, or unspecified chronic kidney disease; N18.2 Chronic kidney disease, stage 2 (mild); M10.9 Gout, unspecified

== ENCOUNTER 2024-06-16 12:39 | Emergency (ER) | payer MEDICARE, OTHER ==
[~2024-06-16] VITALS: Ht 149.9 cm; Wt 86.8 kg
[2024-06-16 13:28] LABS: MAGNESIUM 1.41 mg/dL (1.60-2.60)
[2024-06-16 13:33] LABS: ALBUMIN 4.1 g/dL (3.4-4.8); CALCIUM 10.1 mg/dL (8.3-10.5); TOTAL BILIRUBIN 0.4 mg/dL (0.2-1.2); TOTAL PROTEIN 7.5 g/dL (6.2-8.1)
[2024-06-16] MEDS ORDERED: OZEMPIC0.25 MG/02 SQ (13:43)
[2024-06-16] MEDS ORDERED: Dextrose/Magnesium Sulfate 100 ML IV ONE (13:45)
[2024-06-16] MEDS ORDERED: NS 500 ML IV SCH (13:45)
[2024-06-16] MEDS ORDERED: Potassium Chloride 100 ML IV ONE (13:45)
[2024-06-16] MEDS ORDERED: TRELEGY ELLIPT1 EACH IH ×2 (13:47→13:48)
[2024-06-16] MEDS ORDERED: TRULICITY3 MG/0.5 M SQ (13:47)
[2024-06-16] MEDS ORDERED: FENOFIBRATE120 MG PO (13:51)
[2024-06-16] MEDS ORDERED: DOCUSATE SOD100 MG PO (13:54)
[2024-06-16] MEDS ORDERED: CEPHALEXIN500 M2 PO (13:54)
[2024-06-16] MEDS ORDERED: DESVENLAFAXINE100 MG PO (13:54)
[2024-06-16] MEDS ORDERED: [UNRECOGNIZED DRUG - CODE] (13:55)
[2024-06-16] MEDS ORDERED: FARXIGA10 MG PO (13:55)
[2024-06-16] MEDS ORDERED: LYRICA300 MG PO ×2 (13:56→13:57)
[2024-06-16] MEDS ORDERED: ZAROXOLYN PO (13:57)
[2024-06-16] MEDS ORDERED: MUPIROCIN2% TP (13:58)
[2024-06-16] MEDS ORDERED: TOUJEO MAX300 UNIT/1 (13:59)
[2024-06-16] MEDS ORDERED: VITAMIN D325 MC2 PO (14:00)
[2024-06-16 15:40] VITALS: BP 131/61
== END 2024-06-16 15:45 | disposition home or self-care (01) ==
LOC: ED 12:39
PROVIDERS: Family Medicine
DX: E87.6 Hypokalemia (principal); E11.9 Type 2 diabetes mellitus without complications; E83.42 Hypomagnesemia; E66.9 Obesity, unspecified; Z68.38 Body mass index [BMI] 38.0-38.9, adult
CPT/HCPCS: J3475; J3480; J7050

== ENCOUNTER 2024-06-26 06:22 | Emergency (ER) | payer MEDICARE, OTHER ==
[~2024-06-26 06:22] MED LIST changes: +CEPHALEXIN500 M2 PO; +DESVENLAFAXINE100 MG PO; +DOCUSATE SOD100 MG PO; +FARXIGA10 MG PO; +FENOFIBRATE120 MG PO; +LYRICA300 MG PO; +MUPIROCIN2% TP; +OZEMPIC0.25 MG/02 SQ; +TOUJEO MAX300 UNIT/1; +TRELEGY ELLIPT1 EACH IH; +TRULICITY3 MG/0.5 M SQ; +VITAMIN D325 MC2 PO; +ZAROXOLYN PO; +[UNRECOGNIZED DRUG - CODE]
[2024-06-26] MEDS ORDERED: LAC CREAM12% TP (06:48)
[2024-06-26] MEDS ORDERED: BETAMETHASONE O15 GM TP (06:49)
[2024-06-26] MEDS ORDERED: DONEPEZIL HCL10 MG PO (06:50)
[2024-06-26] MEDS ORDERED: NYSTATIN15 GM TP (06:53)
[2024-06-26] MEDS ORDERED: K-TAB20 MEQ PO (06:56)
[2024-06-26 07:32] LABS: BASO # 0.01 K/mm3 (0.02-0.10); EOS # 0.01 K/mm3 (0.04-0.40); EOS % 0.1 % (1.0-5.0); HEMATOCRIT 38.4 % (37.0-47.0); HEMOGLOBIN 12.7 g/dL (12.5-16.0); LYMPH# 2.27 K/mm3 (1.50-4.00); MEAN CELL VOLUME 85 fl (78-100); MEAN CORPUSCULAR HEMOGLOBIN 28 pg (27-31); MEAN CORPUSCULAR HGB CONC 33 g/dL (33-37); MEAN PLATELET VOLUME 10.8 fl (7.4-10.4); MONO # 0.54 K/mm3 (0.20-0.80); NEU # 4.62 K/mm3 (1.40-6.50); PLATELET COUNT 206 K/mm3 (130-400); RED BLOOD COUNT 4.54 M/mm3 (4.10-5.30); RED CELL DISTRIBUTION WIDTH 13.6 % (11.5-14.5); WHITE BLOOD COUNT 7.5 K/mm3 (4.8-10.8)
[2024-06-26 07:41] LABS: CALCIUM 9.5 mg/dL (8.3-10.5)
[2024-06-26 07:41] LABS: URINE APPEARANCE CLEAR (CLEAR); URINE COLOR YELLOW (YELLOW)
[2024-06-26 07:42] LABS: URINE BILIRUBIN NEGATIVE (NEGATIVE); URINE BLOOD NEGATIVE (NEGATIVE); URINE GLUCOSE 3+ (NEGATIVE); URINE KETONE NEGATIVE (NEGATIVE); URINE LEUKOCYTE ESTERASE NEGATIVE (NEGATIVE); URINE NITRATE NEGATIVE (NEGATIVE); URINE PROTEIN(semi-quant) NEGATIVE (NEGATIVE); URINE WBC 0-1 /hpf (0-3)
[2024-06-26] MEDS ORDERED: NS 250 ML IV ONE (09:00)
[2024-06-26] MEDS ORDERED: Dextrose/Magnesium Sulfate 100 ML IV ONE (09:00)
[2024-06-26] MEDS ORDERED: SLOW-MAG 106 MG1 ECT PO (10:53)
[2024-06-26] MEDS ORDERED: MAGNESIUM CHLORIDE 71.5 MG PO ONE (11:00)
[2024-06-26 11:13] VITALS: BP 117/60
== END 2024-06-26 11:15 | disposition home or self-care (01) ==
LOC: ED 06:22
PROVIDERS: Family Medicine
DX: R10.31 Right lower quadrant pain (principal); R10.32 Left lower quadrant pain; E83.42 Hypomagnesemia
CPT/HCPCS: J3475; J7050

== ENCOUNTER 2024-07-14 09:22 | Emergency (ER) | payer MEDICARE, OTHER ==
[~2024-07-14] VITALS: Ht 149.9 cm; Wt 84.7 kg
[~2024-07-14 09:22] MED LIST changes: +BETAMETHASONE O15 GM TP; +DONEPEZIL HCL10 MG PO; +K-TAB20 MEQ PO; +LAC CREAM12% TP; +NYSTATIN15 GM TP; +SLOW-MAG 106 MG1 ECT PO
[2024-07-14] MEDS ORDERED: Ketorolac 30 MG/ML VIAL IM ONE (10:15)
[2024-07-14] MEDS ORDERED: Cyclobenzaprine 10 MG TAB PO ONE (11:00)
[2024-07-14] MEDS ORDERED: oxyCODONE/Acetaminophen 5-325 MG TAB PO ONE (11:00)
[2024-07-14 11:20] VITALS: BP 106/48
== END 2024-07-14 11:30 | disposition home or self-care (01) ==
LOC: ED 09:22
DX: M54.42 Lumbago with sciatica, left side (principal)
CPT/HCPCS: J1885

== ENCOUNTER → 2024-07-29 | Outpatient (CLI) | payer MEDICARE, OTHER ==
[2024-07-29 10:17] LABS: CALCIUM 9.7 mg/dL (8.3-10.5)
== END ==
LOC: LAB 08:38
PROVIDERS: Internal Medicine Nephrology
DX: E11.21 Type 2 diabetes mellitus with diabetic nephropathy (principal); I12.9 Hypertensive chronic kidney disease with stage 1 through stage 4 chronic kidney disease, or unspecified chronic kidney disease; N18.2 Chronic kidney disease, stage 2 (mild); M10.9 Gout, unspecified; N17.9 Acute kidney failure, unspecified

== ENCOUNTER 2024-08-19 11:00 | Outpatient (RCR) | payer MEDICARE, OTHER | END 2024-09-16 | disposition home or self-care (01) | LOC: PT | DX: M54.16 Radiculopathy, lumbar region (principal) ==

== ENCOUNTER 2024-09-17 08:00 | Outpatient (RCR) | payer MEDICARE, OTHER ==
[~2024-09-17 08:00] MED LIST changes: -TOUJEO MAX300 UNIT/1; +TOUJEO MAX300 UNIT/1 SQ
== END 2024-10-16 | disposition home or self-care (01) ==
LOC: PT
DX: M54.16 Radiculopathy, lumbar region (principal)

== ENCOUNTER 2024-09-21 13:06 | Outpatient (RCR) | payer MEDICARE, OTHER | END 2024-10-18 15:22 | LOC: OPPGERO 13:06 | DX: Z01.89 Encounter for other specified special examinations (principal) | CPT/HCPCS: C7903; G0410 ==

== ENCOUNTER 2024-10-18 15:28 | Outpatient (RCR) | payer MEDICARE, OTHER ==
[2024-11-17] MEDS ORDERED: INSULIN HUMA100 U/ML SQ (10:38)
[2024-11-17] MEDS ORDERED: TAMIFLU 75MG75 MG PO (12:28)
[2024-11-17] MEDS ORDERED: ALBUTEROL2.5 MG/3 M IH (12:29)
== END 2024-11-18 16:36 | disposition home or self-care (01) ==
LOC: OPPGERO 15:28
DX: F43.23 Adjustment disorder with mixed anxiety and depressed mood (principal); F33.9 Major depressive disorder, recurrent, unspecified
CPT/HCPCS: C7903; G0410

== ENCOUNTER 2024-11-17 10:12 | Emergency (ER) | payer MEDICARE, OTHER ==
[~2024-11-17] VITALS: Ht 149.9 cm; Wt 86.3 kg
[2024-11-17] MEDS ORDERED: INSULIN HUMA100 U/ML SQ (10:38)
[2024-11-17 11:39] LABS: EOS # 0.09 K/mm3 (0.04-0.40); EOS % 1.9 % (1.0-5.0); HEMATOCRIT 39.8 % (37.0-47.0); MEAN CELL VOLUME 86 fl (78-100); MEAN CORPUSCULAR HEMOGLOBIN 28 pg (27-31); MEAN CORPUSCULAR HGB CONC 33 g/dL (33-37); MEAN PLATELET VOLUME 10.3 fl (7.4-10.4); MONO # 0.45 K/mm3 (0.20-0.80); NEU # 3.07 K/mm3 (1.40-6.50); PLATELET COUNT 210 K/mm3 (130-400); RED BLOOD COUNT 4.61 M/mm3 (4.10-5.30); RED CELL DISTRIBUTION WIDTH 13.6 % (11.5-14.5); WHITE BLOOD COUNT 4.7 K/mm3 (4.8-10.8)
[2024-11-17 11:42] LABS: ALBUMIN 4.1 g/dL (3.4-4.8)
[2024-11-17 11:44] LABS: CALCIUM 9.7 mg/dL (8.3-10.5)
[2024-11-17 11:45] LABS: TOTAL PROTEIN 7.6 g/dL (6.2-8.1)
[2024-11-17 11:47] LABS: TOTAL BILIRUBIN 0.3 mg/dL (0.2-1.2)
[2024-11-17] MEDS ORDERED: TAMIFLU 75MG75 MG PO (12:28)
[2024-11-17] MEDS ORDERED: ALBUTEROL2.5 MG/3 M IH (12:29)
[2024-11-17] MEDS ORDERED: methylPREDNISolone Sod Succ 125 MG/2 ML VIAL IV ONE (12:30)
[2024-11-17] MEDS ORDERED: Oseltamivir 75 MG CAP PO ONE (12:30)
[2024-11-17 13:30] VITALS: BP 114/71
== END 2024-11-17 13:30 | disposition home or self-care (01) ==
LOC: ED 10:12
DX: J10.1 Influenza due to other identified influenza virus with other respiratory manifestations (principal); E66.9 Obesity, unspecified; Z68.38 Body mass index [BMI] 38.0-38.9, adult
CPT/HCPCS: J2919

== ENCOUNTER 2024-11-19 09:00 | Outpatient (RCR) | payer MEDICARE, OTHER ==
[~2024-11-19 09:00] MED LIST changes: +INSULIN HUMA100 U/ML SQ; +TAMIFLU 75MG75 MG PO
== END 2024-12-17 13:05 ==
LOC: OPPGERO 09:00
DX: F43.23 Adjustment disorder with mixed anxiety and depressed mood (principal)
CPT/HCPCS: G0410

== ENCOUNTER 2024-12-20 12:20 | Outpatient (RCR) | payer MEDICARE, OTHER | END 2025-01-14 19:17 | LOC: OPPGERO 12:20 | DX: F43.23 Adjustment disorder with mixed anxiety and depressed mood (principal) | CPT/HCPCS: G0410 ==